=== PATIENT | female | born 1990 | race Caucasian/White ===

== ENCOUNTER 2016-08-01 15:22 | Emergency (ER) | payer SELFPAY ==
[2016-08-01 15:47] VITALS: BP 111/97
== END 2016-08-01 17:12 | disposition left against medical advice (07) ==
LOC: ER 15:22
DX: Z53.21 Procedure and treatment not carried out due to patient leaving prior to being seen by health care provider (principal)

== ENCOUNTER 2016-08-07 04:04 | Emergency (ER) | payer SELFPAY ==
[2016-08-07 04:17] VITALS: BP 122/73
--- NOTE | 2016-08-07 04:30 | ER Document Report ---
ED General - General Chief Complaint: Ankle Pain Stated Complaint: FALL/ANKLE PAIN Notes: Patient is a 26 year old female who presents with complaint of pain in her ankle and foot. Patient says she stepped out of a shed nighttime. She felt her ankle rolled popped. Pain is become worse and now she can't bear weight. Pain is mostly in the lateral aspect of the ankle. No pain into the remainder of the leg itself. Patient says 3 days ago she also notes stopped her toe. She says the toes swollen as become painful. This is the fifth digit on the left foot. TRAVEL OUTSIDE OF THE [place] IN LAST 30 DAYS: No - Related Data Allergies/Adverse Reactions: No Known Drug Allergies Allergy (Verified 08/01/16 15:42) Past Medical History - Social History Smoking Status: Unknown if Ever Smoked Frequency of alcohol use: None Drug Abuse: None Family History: Reviewed & Not Pertinent Patient has suicidal ideation: No Patient has homicidal ideation: No Renal/ Medical History: Denies: Hx Peritoneal Dialysis Review of Systems - Review of Systems Notes: My Normal Review Basic REVIEW OF SYSTEMS: CONSTITUTIONAL : Denies fever, chills, or sweats. Denies recent illness. MUSCULOSKELETAL: Left ankle pain and toe pain. SKIN: Denies rash or skin lesions. NEUROLOGICAL: Denies sensory or motor loss. ALL OTHER SYSTEMS REVIEWED AND NEGATIVE. Physical Exam - Vital signs Vitals: Temp Pulse Resp BP Pulse Ox 98.2 F 107 H 18 122/73 97 08/07/16 04:10 08/07/16 04:10 08/07/16 04:10 08/07/16 04:10 08/07/16 04:10 - Notes Notes: General Appearance: Well nourished, alert, cooperative, no acute distress, mild obvious discomfort. Vitals: reviewed, See vital signs table. Extremities: Pain palpation over left lateral ankle. The swelling to this area. Medial ankle is nontender. Pain to palpation over the lateral aspect of left foot going into the left pinky toe. Patient is able to move the foot but has pain in doing so. Skin: warm, dry, appropriate color, no rash Neuro: speech clear, oriented x 3, normal affect, responds appropriately to questions. Course - Vital Signs Vital signs: Temp Pulse Resp BP Pulse Ox 98.2 F 107 H 18 122/73 97 08/07/16 04:10 08/07/16 04:10 08/07/16 04:10 08/07/16 04:10 08/07/16 04:10 - Transfer of Care Notes: 08/07/16 05:13 Patient's x-rays are negative for fracture per the radiologist. Informed patient that in reviewing her foot x-ray she may have a small crack through the fifth distal phalanx of the left foot. I informed her treatment of a contused or broken toe is tammie tape and nonweightbearing. Patient understands this. She'll be given crutches and ankle stirrup splint. She's encouraged return to ER shows worsening pain. Patient agrees with plan and will be discharged home. Dictation of this chart was performed using voice recognition software; therefore, there may be some unintended grammatical errors. Discharge - Discharge Clinical Impression: Ankle sprain Qualifiers: Encounter type: initial encounter Involved ligament of ankle: unspecified ligament Laterality: left Qualified Code(s): S93.402A - Sprain of unspecified ligament of left ankle, initial encounter Foot contusion Qualifiers: Encounter type: initial encounter Laterality: left Qualified Code(s): S90.32XA - Contusion of left foot, initial encounter Condition: Good Disposition: HOME, SELF-CARE Additional Instructions: Ankle Stirrup Splint You are to use an ankle brace called a stirrup splint. This type of brace allows you to place greater stresses on the ankle without risk of re-injury, and is often used for more severe ankle injuries such as avulsion fractures and ligament ruptures. The splint can be worn over a sock or tape. For proper support, wear the splint with a shoe over it. It's important that the splint fit properly. Adjust the heel tension, if needed. If your splint has air bladders, peel back the bottom of each air bladder, then move the Velcro attachment of the heel strap up or down. Air bladder pressure can be adjusted by pulling up the valve at the top, threading the air tube down into the main bladder, then blowing air into the bladder or squeezing it out. The two sides of the stirrup can be moved forward or back on your ankle by changing the attachment of the main straps. If you are unable to use the ankle comfortably in the splint, return for re -evaluation. Please stay nonweightbearing off her left foot until it is not painful to walk on it. Please return to ER if you have increased swelling, worsening pain, or feel unwell. Please do not drive when taking the pain medicine was given to him the ER. Please take the pain medicine ([place]) as 1 tablet every 4 hours as needed for pain.
[2016-08-07] MEDS ORDERED: HYDROCODONE/ACETAMINOPHEN 5-325 MG 6 TAB/DSPK PO PRN (05:11)
== END 2016-08-07 05:43 | disposition home or self-care (01) ==
LOC: ER 04:04
DX: S93.402A Sprain of unspecified ligament of left ankle, initial encounter (principal); S90.32XA Contusion of left foot, initial encounter; X50.0XXA Overexertion from strenuous movement or load, initial encounter; M79.675 Pain in left toe(s)
CPT/HCPCS: 99283; 73610; 73630; L1902

== ENCOUNTER 2016-10-14 13:25 | Emergency (ER) | payer SELFPAY ==
[2016-10-14] MEDS ORDERED: OXYCODONE-ACETAMINOPHEN 5-325 MG TABLET PO ONE (14:23)
[2016-10-14] MEDS ORDERED: ONDANSETRON 4 MG TAB.RAPDIS SL ONE (14:23)
--- NOTE | 2016-10-14 14:25 | ER Document Report ---
ED GI/ - General Chief Complaint: Flank Pain Stated Complaint: RIGHT FLANK PAIN,BLOOD IN URINE Time Seen by Provider: 10/14/16 14:20 Mode of Arrival: Ambulatory Information source: Patient TRAVEL OUTSIDE OF THE [place] IN LAST 30 DAYS: No - HPI Patient complains to provider of: Dysuria, Flank pain, Hematuria, Vomiting Onset: Yesterday Timing/Duration: Persistent Quality of pain: Achy, Sharp Severity at maximum: Moderate Severity in ED: Moderate Pain Level: 3 Location: Right flank Vaginal bleeding (Compared to normal period): None Associated symptoms: Chills, Dysuria, Hematuria, Nausea, Vomiting Exacerbated by: Denies Relieved by: Denies Similar symptoms previously: No Recently seen / treated by doctor: No Notes: 10/14/16 14:24 Patient is a 26-year-old female who presents to the emergency room complaining of right-sided flank pain that started yesterday, it is constant and dull in nature with occasional sharper pain, she reports hematuria, dysuria, nausea and vomiting as well as chills, no documented fever, no history of kidney stones previously, denies - Related Data Allergies/Adverse Reactions: No Known Drug Allergies Allergy (Verified 10/14/16 13:46) Past Medical History - General Information source: Patient - Social History Smoking Status: Unknown if Ever Smoked Family History: Reviewed & Not Pertinent Patient has suicidal ideation: No Patient has homicidal ideation: No Renal/ Medical History: Denies: Hx Peritoneal Dialysis - Immunizations Hx Diphtheria, Pertussis, Tetanus Vaccination: Yes Review of Systems - Review of Systems Constitutional: No symptoms reported EENT: No symptoms reported Cardiovascular: No symptoms reported Respiratory: No symptoms reported Gastrointestinal: See HPI Genitourinary: See HPI Female Genitourinary: No symptoms reported Musculoskeletal: No symptoms reported Skin: No symptoms reported Hematologic/Lymphatic: No symptoms reported Neurological/Psychological: No symptoms reported -: Yes All other systems reviewed and negative Physical Exam - Vital signs Vitals: Temp Pulse Resp BP Pulse Ox 97.9 F 108 H 20 131/85 H 99 10/14/16 13:46 10/14/16 13:46 10/14/16 13:46 10/14/16 13:46 10/14/16 13:46 Interpretation: Normal - General General appearance: Appears well, Alert - HEENT Head: Normocephalic, Atraumatic Eyes: Normal Pupils: PERRL - Respiratory Respiratory status: No respiratory distress Chest status: Nontender Breath sounds: Normal Chest palpation: Normal - Cardiovascular Rhythm: Regular Heart sounds: Normal auscultation Murmur: No - Abdominal Inspection: Normal Distension: No distension Bowel sounds: Normal Tenderness: Tender - Suprapubic Organomegaly: No organomegaly - Back Back: Normal, Nontender, CVA tenderness - right side - Extremities General upper extremity: Normal inspection, Nontender, Normal color, Normal ROM , Normal temperature General lower extremity: Normal inspection, Nontender, Normal color, Normal ROM , Normal temperature, Normal weight bearing. No: Alyssa's sign - Neurological Neuro grossly intact: Yes Cognition: Normal Orientation: AAOx4 [place] Coma Scale Eye Opening: Spontaneous [place] Coma Scale Verbal: Oriented [place] Coma Scale Motor: Obeys Commands [place] Coma Scale Total: 15 Speech: Normal Motor strength normal: LUE, RUE, LLE, RLE Sensory: Normal - Psychological Associated symptoms: Normal affect, Normal mood - Skin Skin Temperature: Warm Skin Moisture: Dry Skin Color: Normal Course - Re-evaluation Re-evalutation: 10/14/16 16:26 Lab and imaging findings were discussed with patient at bedside which are consistent with a urinary tract infection, she will be started on antibiotics and discharged with appropriate prescriptions, advised to follow-up with her primary care provider or return if symptoms worsen, patient acknowledges understanding and agreement with this plan - Vital Signs Vital signs: Temp Pulse Resp BP Pulse Ox 97.9 F 108 H 20 131/85 H 99 10/14/16 13:46 10/14/16 13:46 10/14/16 13:46 10/14/16 13:46 10/14/16 13:46 - Laboratory Result Diagrams: 10/14/16 14:16 10/14/16 14:16 Laboratory results interpreted by me: 10/14/16 10/14/16 14:16 14:16 WBC 15.1 H Absolute Neutrophils 10.7 H Urine Blood SMALL H Ur Leukocyte Esterase MODERATE H - Diagnostic Test Radiology reviewed: Image reviewed, Reports reviewed Discharge - Discharge Clinical Impression: UTI (urinary tract infection) Qualifiers: Urinary tract infection type: site unspecified Hematuria presence: without hematuria Qualified Code(s): N39.0 - Urinary tract infection, site not specified Condition: Stable Disposition: HOME, SELF-CARE Instructions: Urinary Tract Infection ([facility]) Additional Instructions: Follow up with your primary care provider in one to 2 days. Return to the emergency room immediately if symptoms worsen or any additional concerns. Prescriptions: Cephalexin Monohydrate [Keflex 500 mg Capsule] 500 mg PO BID #20 capsule Ondansetron [Zofran Odt 4 mg Tablet] 1 - 2 tab PO Q4H #10 tab.gavin
[2016-10-14 14:47] LABS: ABSOLUTE BASOPHILS # (AUTO) 0.1 10^3/uL (0.0-0.2); ABSOLUTE EOSINOPHILS # (AUTO) 0.4 10^3/uL (0.0-0.6); ABSOLUTE LYMPHOCYTES (AUTO) 3.1 10^3/uL (0.5-4.7); ABSOLUTE MONOCYTES (AUTO) 0.8 10^3/uL (0.1-1.4); ABSOLUTE NEUT (AUTO) 10.7 10^3/uL (1.7-8.2); BASOPHILS % (AUTO) 0.6 % (0-2); EOSINOPHILS % (AUTO) 2.8 % (0-6); HEMATOCRIT 43.8 % (36.0-47.0); HEMOGLOBIN 14.7 g/dL (12.0-15.5); HGB HCT DIFFERENCE 0.3; LYMPHOCYTES % (AUTO) 20.6 % (13-45); MEAN CORPUSCULAR HEMOGLOBIN 30.3 pg (27.0-33.4); MEAN CORPUSCULAR HGB CONC 33.5 g/dL (32.0-36.0); MEAN CORPUSCULAR VOLUME 90 fl (80-97); MONOCYTES % (AUTO) 5.4 % (3-13); RED BLOOD COUNT 4.84 10^6/uL (3.72-5.28); RED CELL DISTRIBUTION WIDTH 12.8 % (11.5-14.0); SEGMENTED NEUTROPHILS % (AUTO) 70.6 % (42-78); WHITE BLOOD COUNT 15.1 10^3/uL (4.0-10.5)
[2016-10-14 14:52] LABS: APPEARANCE,URINE CLEAR; BILIRUBIN,URINE NEGATIVE (NEGATIVE); GLUCOSE, URINE NEGATIVE (NEGATIVE); KETONES,URINE NEGATIVE (NEGATIVE); LEUKOCYTE ESTERASE,URINE MODERATE (NEGATIVE); NITRITE,URINE NEGATIVE (NEGATIVE); PROTEIN,URINE NEGATIVE (NEGATIVE); URINE SPECIFIC GRAVITY 1.003; UROBILINOGEN,URINE NEGATIVE mg/dL (<2.0)
[2016-10-14 15:11] LABS: ALANINE AMINOTRANSFERASE 30 U/L (9-52); ALBUMIN 4.6 g/dL (3.5-5.0); ALKALINE PHOSPHATASE 64 U/L (38-126); ANION GAP 11 (5-19); ASPARTATE AMINO TRANSFERASE 25 U/L (14-36); BILIRUBIN,DIRECT 0.3 mg/dL (0.0-0.4); BILIRUBIN,TOTAL 0.6 mg/dL (0.2-1.3); BLOOD UREA NITROGEN 8 mg/dL (7-20); CALCIUM 9.8 mg/dL (8.4-10.2); CARBON DIOXIDE 25 mmol/L (22-30); CHLORIDE 106 mmol/L (98-107); CREATININE RESULT 0.84 mg/dL (0.52-1.25); GLUCOSE 87 mg/dL (75-110); LIPASE 127.1 U/L (23-300); POTASSIUM 4.2 mmol/L (3.6-5.0); SODIUM 142.3 mmol/L (137-145); TOTAL PROTEIN 7.8 g/dL (6.3-8.2)
--- NOTE | 2016-10-14 15:45 | RADIOLOGY REPORT (SQ) ---
EXAM DESCRIPTION: CT LTD RENAL STONE PROTOCOL ON COMPLETED DATE/TIME: 10/14/2016 3:30 pm REASON FOR STUDY: flank pain COMPARISON: CT from [facility] dated 06/06/2013. TECHNIQUE: CT scan of the abdomen and pelvis performed without intravenous or oral contrast. Images reviewed with lung, soft tissue, and bone windows. Reconstructed coronal and sagittal MPR images revi ewed. All images stored on PACS. All CT scanners at this facility use dose modulation, iterative reconstruction, and/or weight based d osing when appropriate to reduce radiation dose to as low as reasonably achievable (ALARA). [facility]: Dose Right [facility]: CareDose [facility]: Dose Right [facility]: Teradose 4D [facility]: [employer] RADIATION DOSE: Up-to-date CT equipment and radiation dose reduction techniques were employed. CTDIv ol: 10.1 mGy. DLP: 576 mGy-cm.mGy. LIMITATIONS: None. FINDINGS: LOWER CHEST: No significant findings. No nodules or infiltrates. NON-CONTRASTED LIVER, SPLEEN, ADRENALS: Evaluation limited by lack of IV contrast. No identified sign ificant masses. PANCREAS: No masses. No peripancreatic inflammatory changes. GALLBLADDER: No identified stones by CT criteria. No inflammatory changes to suggest cholecystitis. RIGHT KIDNEY AND URETER: No suspicious masses. Assessment limited by lack of IV contrast. No signif icant calcifications. No hydronephrosis or hydroureter. LEFT KIDNEY AND URETER: No suspicious masses. Assessment limited by lack of IV contrast. No signifi cant calcifications. No hydronephrosis or hydroureter. AORTA AND RETROPERITONEUM: No aneurysm. No retroperitoneal masses or adenopathy. BOWEL AND PERITONEAL CAVITY: No obvious masses or inflammatory changes. No free fluid. APPENDIX: Normal. PELVIS, BLADDER, AND ABDOMINAL WALL:No abnormal masses. No free fluid. Bladder normal. BONES: No significant findings. OTHER: No other significant finding. IMPRESSION: NO SIGNIFICANT OR ACUTE PROCESS IN THE ABDOMEN OR PELVIS. TECHNICAL DOCUMENTATION: JOB ID: [id number] Quality ID # [id number]: Final reports with documentation of one or more dose reduction techniques (e.g., Au tomated exposure control, adjustment of the mA and/or kV according to patient size, use of iterative reconstruction technique) 2010 [employer]- All Rights Reserved
[2016-10-14] MEDS ORDERED: CEPHALEXIN 500 MG CAPSULE PO ONE (16:28)
[2016-10-14] MEDS ORDERED: ONDANSETRON ODT 4 MG TAB (6 TAB/DSPK) PO PRN (16:28)
[2016-10-14 16:41] VITALS: BP 127/83
== END 2016-10-14 16:35 | disposition home or self-care (01) ==
LOC: ER 13:25
DX: N39.0 Urinary tract infection, site not specified (principal); R10.9 Unspecified abdominal pain; R31.9 Hematuria, unspecified; R11.2 Nausea with vomiting, unspecified
CPT/HCPCS: 99284; 36415; 87086; 83690; 84703; 85025; 87088; 80053; 81001; 87186; 76380; S0119

== ENCOUNTER 2017-03-14 17:32 | Emergency (ER) | payer SELFPAY ==
[2017-03-14 17:36] VITALS: BP 137/98
[2017-03-14] MEDS ORDERED: BUPIVACAINE HCL 0.75% INJ/PF (7.5 MG/1 ML) 10 ML SDV INJ ONE (19:11)
[2017-03-14] MEDS ORDERED: TRIAMCINOLONE ACETONIDE INJ 40 MG/1 ML VIAL INJ ONE (19:11)
--- NOTE | 2017-03-14 19:16 | ER Document Report ---
HPI - HPI Pain Level: 3 Notes: Patient is a 26-year-old female who presents ED complaining of right lateral leg pain 2 days. patient states that it hurts to lay on her right side. Patient states it also hurts to walk and internally and externally rotate her right leg. Patient has not noticed any swelling or bruising to the area. She still able to weight-bear without any difficulties. Moving makes the pain worse while not moving it allows the pain to subside. She has tried some over- the-counter meds with minimal relief. She denies any significant medical history or drug allergies. The pain does not radiate. Denies any headache, fever, URI, sore throat, chest pain, palpitations, syncope, cough, shortness of breath, wheeze, dyspnea, abdominal pain, nausea/vomiting/diarrhea, back pain, urinary retention, dysuria, hematuria, loss of control of bowel or bladder, numbness/tingling, saddle anesthesia, muscle paralysis/weakness, or rash. - ROS Notes: REVIEW OF SYSTEMS: CONSTITUTIONAL : Denies fever, chills, or sweats. Denies recent illness. EENT: Denies eye, ear, throat, or mouth pain or symptoms. Denies nasal or sinus congestion or discharge. Denies throat, tongue, or mouth swelling or difficulty swallowing. CARDIOVASCULAR: Denies chest pain. Denies palpitations or racing or irregular heart beat. Denies ankle edema. RESPIRATORY: Denies cough, cold, or chest congestion. Denies shortness of breath, difficulty breathing, or wheezing. GASTROINTESTINAL: Denies abdominal pain or distention. Denies nausea, vomiting , or diarrhea. Denies blood in vomitus, stools, or per rectum. Denies black, tarry stools. Denies constipation. GENITOURINARY: Denies difficulty urinating, painful urination, burning, frequency, blood in urine, or discharge. FEMALE GENITOURINARY: Denies vaginal bleeding, heavy or abnormal periods, irregular periods. Denies vaginal discharge or odor. MUSCULOSKELETAL: see hpi SKIN: Denies rash, lesions or sores. NEUROLOGICAL: Denies confusion or altered mental status. Denies passing out or loss of consciousness. Denies dizziness or lightheadedness. Denies headache. Denies weakness or paralysis or loss of use of either side. Denies problems with gait or speech. Denies sensory loss, numbness, or tingling. ALL OTHER SYSTEMS REVIEWED AND NEGATIVE. Dictation was performed using [email or web address] voice recognition software Past Medical History - Social History Smoking Status: Unknown if Ever Smoked Family History: Reviewed & Not Pertinent Renal/ Medical History: Denies: Hx Peritoneal Dialysis Past Surgical History: Reports: Hx Oral Surgery - wisdom teeth removed, Hx Tonsillectomy - Immunizations Hx Diphtheria, Pertussis, Tetanus Vaccination: Yes Vertical Provider Document - CONSTITUTIONAL Agree With Documented VS: Yes Notes: PHYSICAL EXAMINATION: GENERAL: Well-appearing, well-nourished and in no acute distress. LUNGS: Breath sounds clear to auscultation bilaterally and equal. No wheezes rales or rhonchi. HEART: Regular rate and rhythm without murmurs, rubs, gallops. Musculoskeletal: Rt Leg: FROM to passive/active. Strength 5+/5. + tenderness to palp of the troch bursa. No crepitus or bony tenderness otherwise. No ecchymosis, abrasion, erythema, or obvious swelling noted. Back: No step-offs, deformity, ecchymosis, erythema. FROM to passive/active. Strength 5+/5. Non-tender. No SI jt tenderness. Extremities: No cyanosis, clubbing, or edema b/l. Peripheral pulses 2+. Capillary refill less than 3 seconds. NEUROLOGICAL: Normal speech, normal gait. Normal sensory, motor exams PSYCH: Normal mood, normal affect. SKIN: Warm, Dry, normal turgor, no rashes or lesions noted. - INFECTION CONTROL TRAVEL OUTSIDE OF THE [place] IN LAST 30 DAYS: No - RESPIRATORY O2 Sat by Pulse Oximetry: 98 Course - Re-evaluation Re-evalutation: 03/14/17 20:15 Patient is an afebrile, well-hydrated, 26-year-old female who presents the ED with trochanteric bursitis of the right leg. Vitals are stable. PE is otherwise unremarkable for any neurovascular compromise, obvious tendon/ ligament rupture, obvious fracture or dislocation. No imaging warranted based on H&P today. Trigger point injection with Kenalog and lidocaine was performed successfully without any complications. Patient tolerated procedure well. I will send her home with a prescription for naproxen. Conservative measures for symptoms otherwise. Recheck with your PCM in 3-5 days. Consider consult with orthopedics and physical therapy. Return to the ED with any worsening/ concerning symptoms otherwise as reviewed in discharge. Patient is in agreement. - Vital Signs Vital signs: Temp Pulse Resp BP Pulse Ox 98.1 F 83 16 137/98 H 98 03/14/17 17:35 03/14/17 17:35 03/14/17 17:35 03/14/17 17:35 03/14/17 17:35 Procedures - Additional Procedures Trigger point injection Time performed: 20:10 Additional Procedures: Other Notes: 03/14/17 20:10 Verbal and written consent was obtained after risks, procedure, and benefits were reviewed Skin was cleaned utilizing iodine and alcohol swabs 5 cc syringe with a 1.5 inch 25-gauge needle was filled with 40 mg of Kenalog and 3 cc of Sensorcaine Patient had resolution of symptoms which indicated appropriate placement of medication Patient tolerated procedure well without any complications No blood loss Discharge - Discharge Clinical Impression: Trochanteric bursitis of right hip Condition: Stable Disposition: HOME, SELF-CARE Instructions: Bursitis ([facility]) Additional Instructions: Rest, Ice Tylenol/ibuprofen as needed Light stretches daily Strength exercises as able Moist heat and massage may help F/u with your PCP in 3-5 days for a recheck Consider consult(s) with Orthopedics/physical therapy for ongoing/worsening symptoms Return to the ED with any worsening symptoms and/or development of fever, headache, chest pain, palpitations, syncope, shortness of breath, trouble breathing, abdominal pain, n/v/d, muscle weakness/paralysis, numbness/tingling, swelling, redness, or other worsening symptoms that are concerning to you. Prescriptions: Naproxen 500 mg PO BID PRN #30 tablet PRN Reason: Forms: Elevated Blood Pressure Referrals: [facility] ([facility]) [Provider Group] - Follow up as needed
== END 2017-03-14 20:33 | disposition home or self-care (01) ==
LOC: ER 17:32
DX: M70.61 Trochanteric bursitis, right hip (principal); M79.604 Pain in right leg
CPT/HCPCS: 99283; 96372; J3490 ×2